=== PATIENT | male | born 1995 | race Asian ===

== ENCOUNTER 2022-01-17 13:51 | Emergency (ER) | payer OTHER ==
[~2022-01-17] VITALS: Ht 180.3 cm; Wt 93.2 kg
[2022-01-17] MEDS ORDERED: LOSA50TA28 PO (14:09)
[2022-01-17] MEDS ORDERED: LORazepam 1 MG TAB PO STA (14:41)
[2022-01-17 14:59] LABS: HEMATOCRIT 45.7 % (42.0-52.0); HEMOGLOBIN 16.3 g/dl (13.5-17.5); MEAN CORPUSCULAR HEMOGLOBIN 30.7 pg (27.0-33.0); MEAN CORPUSCULAR HGB CONC 35.7 g/dl (32.0-36.5); MEAN CORPUSCULAR VOLUME 86.1 fl (80.0-96.0); PLATELET COUNT, AUTOMATED 164 10^3/uL (150-450); RED BLOOD COUNT 5.31 10^6/uL (4.30-6.10); WHITE BLOOD COUNT 8.2 10^3/uL (4.0-10.0)
[2022-01-17 15:30] LABS: AMPHETAMINES LEVEL URINE NEGATIVE (NEGATIVE); BARBITURATES URINE NEGATIVE (NEGATIVE); BENZODIAZEPINES URINE NEGATIVE (NEGATIVE); CANNABINOIDS URINE NEGATIVE (NEGATIVE); COCAINE METABOLITE URINE NEGATIVE (NEGATIVE); METHADONE URINE NEGATIVE (NEGATIVE); OPIATES URINE NEGATIVE (NEGATIVE); PHENCYCLIDINE URINE NEGATIVE (NEGATIVE)
[2022-01-17 15:50] LABS: ACETAMINOPHEN LEVEL < 2.0 UG/ML (10.0-30.0); ALBUMIN 4.3 GM/DL (3.2-5.2); ALT/SGPT 69 U/L (12-78); BILIRUBIN,DIRECT 0.2 MG/DL (0.0-0.2); BILIRUBIN,TOTAL 0.8 MG/DL (0.2-1.0); BLOOD UREA NITROGEN 11 MG/DL (7-18); CALCIUM LEVEL 8.6 MG/DL (8.5-10.1); CARBON DIOXIDE LEVEL 28 MEQ/L (21-32); CHLORIDE LEVEL 108 MEQ/L (98-107); CREATININE FOR GFR 1.13 MG/DL (0.70-1.30); ETHYL ALCOHOL (ETHANOL) < 0.003 % (0.000-0.010); GLOMERULAR FILTRATION RATE > 60.0 (>60); GLUCOSE, FASTING 89 MG/DL (70-100); POTASSIUM SERUM 3.7 MEQ/L (3.5-5.1); SALICYLATE LEVEL < 1.7 MG/DL (5.0-30.0); SODIUM LEVEL 139 MEQ/L (136-145); THYROID STIMULATING HORMONE 0.335 uIU/ML (0.358-3.740); TOTAL PROTEIN 7.8 GM/DL (6.4-8.2)
[2022-01-17] MEDS ORDERED: ATIV1TAB10 PO (16:32)
[2022-01-17 16:45] VITALS: BP 159/80
== END 2022-01-17 16:46 | disposition home or self-care (01) ==
LOC: M ED 13:51 → EDBD 13:51 → M ED 16:46
DX: F41.9 Anxiety disorder, unspecified (principal); I10 Essential (primary) hypertension; Z79.52 Long term (current) use of systemic steroids; Z79.899 Other long term (current) drug therapy

== ENCOUNTER 2022-01-19 07:07 | Emergency (ER) | payer OTHER ==
[~2022-01-19] VITALS: Ht 177.8 cm; Wt 90.6 kg
[~2022-01-19 07:07] MED LIST: ATIV1TAB10 PO; LOSA50TA28 PO
[2022-01-19 07:08] VITALS: BP 167/78
== END 2022-01-19 09:43 | disposition left against medical advice (07) ==
LOC: M ED 07:07
DX: Z53.21 Procedure and treatment not carried out due to patient leaving prior to being seen by health care provider (principal)

== ENCOUNTER → 2022-04-20 | Outpatient (CLI) | payer OTHER ==
[~2022-04-20] MED LIST changes: +DEPA1TAB3 PO; +OMEP40CA4 PO; +SERO50TA PO
== END ==
LOC: M RAD 07:14
PROVIDERS: ATTEND Internal Medicine
DX: D75.1 Secondary polycythemia (principal)

== ENCOUNTER → 2022-05-08 | Outpatient (REF) | LOC: M PLAIMG 09:01 | PROVIDERS: ATTEND Internal Medicine | DX: R06.02 Shortness of breath (principal) ==

== ENCOUNTER 2022-07-22 09:33 | Inpatient (IN) | payer OTHER ==
[~2022-07-22] VITALS: Ht 177.8 cm; Wt 89.1 kg
[2022-07-22] MEDS ORDERED: NALT50TA4 PO (10:26)
[2022-07-22] MEDS ORDERED: AMLO1TAB24 PO (10:26)
[2022-07-22] MEDS ORDERED: LORazepam 1 MG TAB PO PRN (10:45)
[2022-07-22] MEDS ORDERED: DIVALPROEX 500 MG TAB PO ONE (11:00)
[2022-07-22] MEDS ORDERED: LOSARTAN 50MG TABLET PO ONE (11:00)
[2022-07-22 11:11] LABS: HEMATOCRIT 51.3 % (42.0-52.0); HEMOGLOBIN 17.1 g/dl (13.5-17.5); MEAN CORPUSCULAR HEMOGLOBIN 28.7 pg (27.0-33.0); MEAN CORPUSCULAR HGB CONC 33.3 g/dl (32.0-36.5); MEAN CORPUSCULAR VOLUME 86.1 fl (80.0-96.0); PLATELET COUNT, AUTOMATED 205 10^3/uL (150-450); RED BLOOD COUNT 5.96 10^6/uL (4.30-6.10); WHITE BLOOD COUNT 7.8 10^3/uL (4.0-10.0)
[2022-07-22 12:00] LABS: ALBUMIN 4.6 GM/DL (3.2-5.2); ALT/SGPT 36 U/L (12-78); BILIRUBIN,DIRECT 0.2 MG/DL (0.0-0.2); BILIRUBIN,TOTAL 0.7 MG/DL (0.2-1.0); BLOOD UREA NITROGEN 15 MG/DL (7-18); CALCIUM LEVEL 9.6 MG/DL (8.5-10.1); CARBON DIOXIDE LEVEL 28 MEQ/L (21-32); CHLORIDE LEVEL 104 MEQ/L (98-107); CREATININE FOR GFR 1.22 MG/DL (0.70-1.30); GLOMERULAR FILTRATION RATE > 60.0 (>60); GLUCOSE, FASTING 105 MG/DL (70-100); POTASSIUM SERUM 3.8 MEQ/L (3.5-5.1); SALICYLATE LEVEL < 1.7 MG/DL (5.0-30.0); SODIUM LEVEL 136 MEQ/L (136-145); THYROID STIMULATING HORMONE 0.161 uIU/ML (0.358-3.740); TOTAL PROTEIN 8.2 GM/DL (6.4-8.2)
[2022-07-22 12:03] LABS: ACETAMINOPHEN LEVEL < 2.0 UG/ML (10.0-30.0); ETHYL ALCOHOL (ETHANOL) < 0.003 % (0.000-0.010)
[2022-07-22 12:09] LABS: RSV AMPLIFICATION NEGATIVE (NEGATIVE)
[2022-07-22 12:11] LABS: AMPHETAMINES LEVEL URINE NEGATIVE (NEGATIVE); BARBITURATES URINE NEGATIVE (NEGATIVE); BENZODIAZEPINES URINE NEGATIVE (NEGATIVE); CANNABINOIDS URINE NEGATIVE (NEGATIVE); COCAINE METABOLITE URINE NEGATIVE (NEGATIVE); METHADONE URINE NEGATIVE (NEGATIVE); OPIATES URINE NEGATIVE (NEGATIVE); PHENCYCLIDINE URINE NEGATIVE (NEGATIVE)
[2022-07-22] MEDS ORDERED: LOSA100T45 PO (14:57)
[2022-07-22] MEDS ORDERED: HOME MED LIST COMPLETE! XX SCH (15:00)
[2022-07-22] MEDS ORDERED: OMEPRAZOLE 20MG CAP PO PRN (19:50)
[2022-07-22] MEDS: QUEtiapine FUMARATE 50MG TAB PO SCH (21:11)
[2022-07-22] MEDS: amLODIPine 5 MG TAB PO SCH (21:12)
[2022-07-23] MEDS: OMEPRAZOLE 20MG CAP PO SCH (08:58)
[2022-07-23] MEDS: LOSARTAN 50MG TABLET PO SCH (08:58)
[2022-07-23] MEDS: DIVALPROEX 500 MG TAB PO SCH (08:58)
[2022-07-23] MEDS ORDERED: NALTREXONE 50 MG TAB PO SCH (09:00)
[2022-07-23] MEDS ORDERED: DIVALPROEX 500MG *ER* TAB PO SCH (09:00)
[2022-07-23] MEDS: amLODIPine 5 MG TAB PO SCH (21:25)
[2022-07-23] MEDS: QUEtiapine FUMARATE 50MG TAB PO SCH (21:25)
[2022-07-24] MEDS: DIVALPROEX 500 MG TAB PO SCH (11:01)
[2022-07-24] MEDS: OMEPRAZOLE 20MG CAP PO SCH (11:01)
[2022-07-24] MEDS: LOSARTAN 50MG TABLET PO SCH (11:02)
[2022-07-24] MEDS ORDERED: OMEPRAZOLE 20MG CAP PO PRN (14:00)
[2022-07-24] MEDS ORDERED: OLANZapine 5 MG TAB PO PRN (14:00)
[2022-07-24] MEDS ORDERED: MOM 30ML SUSPENSION UDC PO PRN (14:00)
[2022-07-24] MEDS ORDERED: traZODone 50 MG TAB PO PRN (14:00)
[2022-07-24] MEDS ORDERED: MAALOX 30 ML SUSP *UDC PO PRN (14:00)
[2022-07-24] MEDS ORDERED: diphenhydrAMINE 25MG CAP PO PRN (14:00)
[2022-07-24] MEDS: NICOTINE 21MG/24HR 1 EA TRANSDERMAL TD SCH (15:45)
[2022-07-24 17:28] LABS: RSV AMPLIFICATION NEGATIVE (NEGATIVE)
[2022-07-24 21:03] VITALS: BP 140/95
[2022-07-24] MEDS: amLODIPine 5 MG TAB PO SCH (22:28)
[2022-07-24] MEDS: NALTREXONE 50 MG TAB PO SCH (22:28)
[2022-07-24] MEDS: QUEtiapine FUMARATE 50MG TAB PO SCH (22:29)
[2022-07-25 06:14] VITALS: BP 142/92
[2022-07-25] MEDS: LOSARTAN 50MG TABLET PO SCH (08:06)
[2022-07-25] MEDS: NICOTINE 21MG/24HR 1 EA TRANSDERMAL TD SCH (08:07)
[2022-07-25] MEDS ORDERED: DIVALPROEX 500 MG TAB PO SCH (09:00)
[2022-07-25 12:34] LABS: THYROID STIMULATING HORMONE 0.206 uIU/ML (0.55-4.78)
[2022-07-25 16:07] LABS: FREE T4 1.86 NG/DL (0.89-1.76)
[2022-07-25 18:11] VITALS: BP 150/90
[2022-07-25] MEDS: DIVALPROEX 250MG *ER* TAB PO SCH (21:00)
[2022-07-25] MEDS: amLODIPine 5 MG TAB PO SCH (21:00)
[2022-07-25] MEDS: QUEtiapine FUMARATE 50MG TAB PO SCH (21:00)
[2022-07-25] MEDS: NALTREXONE 50 MG TAB PO SCH (21:00)
[2022-07-26 06:08] VITALS: BP 141/78
[2022-07-26 07:41] LABS: CHOLESTEROL RISK RATIO 4.73 (<5); HDL CHOLESTEROL 36.3 MG/DL (>40); LDL CHOLESTEROL 115.5 MG/DL (<100)
[2022-07-26] MEDS: NICOTINE 21MG/24HR 1 EA TRANSDERMAL TD SCH (08:26)
[2022-07-26] MEDS: LOSARTAN 50MG TABLET PO SCH (08:26)
[2022-07-26] MEDS: atenoloL 25 MG TAB PO SCH (15:35)
[2022-07-26 17:17] LABS: TOTAL T3 96.5 NG/DL (60.0-181.0)
[2022-07-26 18:28] VITALS: BP 160/98
[2022-07-26] MEDS: NALTREXONE 50 MG TAB PO SCH (22:04)
[2022-07-26] MEDS: amLODIPine 5 MG TAB PO SCH (22:04)
[2022-07-26] MEDS: DIVALPROEX 250MG *ER* TAB PO SCH (22:04)
[2022-07-26] MEDS: QUEtiapine FUMARATE 50MG TAB PO SCH (22:07)
[2022-07-27 06:18] VITALS: BP 137/59
[2022-07-27] MEDS: LOSARTAN 50MG TABLET PO SCH (08:26)
[2022-07-27] MEDS: atenoloL 25 MG TAB PO SCH (08:27)
[2022-07-27] MEDS: NICOTINE 21MG/24HR 1 EA TRANSDERMAL TD SCH (08:28)
[2022-07-27] MEDS ORDERED: atenoloL 25 MG TAB PO SCH (09:00)
[2022-07-27 10:10] LABS: FREE T4 1.47 NG/DL (0.89-1.76); TOTAL T3 93.7 NG/DL (60.0-181.0)
[2022-07-27 10:40] LABS: THYROID PEROXIDASE ANTIBODY < 28.0 U/ML (<60.0); THYROID STIMULATING HORMONE 0.675 uIU/ML (0.55-4.78)
[2022-07-27] MEDS: IBUPROFEN 400MG TAB PO PRN (13:19)
[2022-07-27 18:09] VITALS: BP 132/74
[2022-07-27] MEDS: PILL CUTTER 1 EACH XX PRN (20:19)
[2022-07-27] MEDS: NALTREXONE 50 MG TAB PO SCH (20:20)
[2022-07-27] MEDS: DIVALPROEX 250MG *ER* TAB PO SCH (20:20)
[2022-07-27] MEDS: QUEtiapine FUMARATE 50MG TAB PO SCH (20:20)
[2022-07-27] MEDS: amLODIPine 5 MG TAB PO SCH (20:20)
[2022-07-28] MEDS: NICOTINE 21MG/24HR 1 EA TRANSDERMAL TD SCH (08:24)
[2022-07-28] MEDS: PILL CUTTER 1 EACH XX PRN (08:26)
[2022-07-28] MEDS: IBUPROFEN 400MG TAB PO PRN (08:27)
[2022-07-28] MEDS: LOSARTAN 50MG TABLET PO SCH (08:27)
[2022-07-28] MEDS: atenoloL 25 MG TAB PO SCH (08:30)
[2022-07-28 18:09] VITALS: BP 127/74
[2022-07-28] MEDS: amLODIPine 5 MG TAB PO SCH (21:24)
[2022-07-28] MEDS: NALTREXONE 50 MG TAB PO SCH (21:24)
[2022-07-28] MEDS: QUEtiapine FUMARATE 50MG TAB PO SCH (21:24)
[2022-07-28] MEDS: DIVALPROEX 250MG *ER* TAB PO SCH (21:24)
[2022-07-29 00:40] VITALS: BP 124/78
[2022-07-29 06:57] VITALS: BP 155/84
[2022-07-29] MEDS: LOSARTAN 50MG TABLET PO SCH (08:30)
[2022-07-29] MEDS: IBUPROFEN 400MG TAB PO PRN (08:31)
[2022-07-29] MEDS: atenoloL 25 MG TAB PO SCH (08:32)
[2022-07-29] MEDS: NICOTINE 21MG/24HR 1 EA TRANSDERMAL TD SCH (08:33)
[2022-07-29 16:30] VITALS: BP 164/78
[2022-07-29] MEDS: NALTREXONE 50 MG TAB PO SCH (21:02)
[2022-07-29] MEDS: PILL CUTTER 1 EACH XX PRN (21:02)
[2022-07-29] MEDS: DIVALPROEX 250MG *ER* TAB PO SCH (21:03)
[2022-07-29] MEDS: QUEtiapine FUMARATE 50MG TAB PO SCH (21:03)
[2022-07-29] MEDS: amLODIPine 5 MG TAB PO SCH (21:03)
[2022-07-30 06:24] VITALS: BP 137/81
[2022-07-30] MEDS: NICOTINE 21MG/24HR 1 EA TRANSDERMAL TD SCH (08:34)
[2022-07-30] MEDS: PILL CUTTER 1 EACH XX PRN (08:38)
[2022-07-30 08:39] VITALS: BP 138/98
[2022-07-30] MEDS: LOSARTAN 50MG TABLET PO SCH (08:39)
[2022-07-30] MEDS: atenoloL 25 MG TAB PO SCH (08:39)
[2022-07-30] MEDS: IBUPROFEN 400MG TAB PO PRN (08:44)
[2022-07-30] MEDS ORDERED: METH25TAB PO (09:22)
[2022-07-30] MEDS ORDERED: NICO21PAT TD (09:22)
[2022-07-30] MEDS ORDERED: DEPA250T2 PO (09:22)
[2022-07-30] MEDS ORDERED: SERO50TA PO (09:22)
[2022-07-31 11:08] LABS: THRYOGLOBULIN ANTIBODIES (ATA) < 1.0 IU/mL (0.0-0.9); THYROGLOBULIN QUANTITATIVE 4.6 ng/mL (1.4-29.2); TSH RECEPTOR ASSAY <1.10 IU/L (0.00-1.75)
[2022-07-31 11:49] LABS: THYROGLOBULIN ANTIBODY < 15.0 U/ML (<60.0)
[2023-07-22] MEDS ORDERED: NALTREXONE 50 MG TAB PO SCH (21:00)
== END 2022-07-30 12:18 | disposition home or self-care (01) | DRG 885 ==
LOC: M ED 09:33 → EDBD 09:33 → M ED INP 07-24 13:56 → M PSY 07-24 21:00
PROVIDERS: ADMIT Student in an Organized Health Care Education/Training Program; ATTEND Student in an Organized Health Care Education/Training Program
DX: F31.9 Bipolar disorder, unspecified (principal); R45.851 Suicidal ideations; F43.10 Post-traumatic stress disorder, unspecified; F60.3 Borderline personality disorder; F31.60 Bipolar disorder, current episode mixed, unspecified; F63.0 Pathological gambling; Z62.810 Personal history of physical and sexual abuse in childhood; Z79.899 Other long term (current) drug therapy; I10 Essential (primary) hypertension; K21.9 Gastro-esophageal reflux disease without esophagitis; E05.90 Thyrotoxicosis, unspecified without thyrotoxic crisis or storm